=== PATIENT | male | born 1960 | race Caucasian/White ===

== ENCOUNTER 2019-03-16 01:19 | Day surgery (SDC) | payer BC, SELFPAY ==
[2019-03-06 14:55] VITALS: BMI 34.0
--- NOTE | ~2019-03-16 | CT_ITS ---
EXAMINATION: CT abdomen pelvis wo con EXAM DATE: 03/16/2019 11:42 INDICATION: Renal protocol. TECHNIQUE: Spiral CT of the abdomen and pelvis was performed without contrast. Axial, coronal and sag ittal images were reviewed. The dose-length product (DLP) for this examination was 361.31 mGy-cm. T he exposure was tailored according to patient size (auto mA exposure control), and iterative reconstr uction (ASIR) was used as additional dose reduction technique. Comparison is made to prior examinatio n from 05/24/2018. Correlation was made with KUB same date. FINDINGS: There is a 5 mm stone in the mid aspect of the left ureter. Mild bilateral perinephric fat stranding. No hydronephrosis at present. On the KUB exam obtained today, this projects over the left sacroiliac joint but is difficult to specifically identify. There is 3 mm stone in left inferior prabhakar x. The prostate is unremarkable. The bladder is unremarkable. The liver, spleen, adrenal glands an d pancreas are unremarkable. Gallbladder is unremarkable. No biliary obstruction. There is no retr operitoneal or pelvic lymphadenopathy. There is mild scattered arteriosclerotic disease. The appendix is normal. The stomach and small bowel are unremarkable. There is expected amount of c olonic stool. There is moderate sigmoid predominant colonic diverticulosis. There is no adjacent inf lammatory change to suggest diverticulitis. No free intraperitoneal gas. The heart is normal in siz e. There are no pericardial or pleural effusions. The lung bases are unremarkable. Moderate bilate ral hip osteoarthritis. IMPRESSION: 1. Left mid ureteral 5 mm stone. Mild bilateral perinephric fat stranding. No hydronephrosis at pres ent. 2. Smaller left inferior calyceal stone. 3. Colonic diverticulosis. Reviewed, dictated and finalized at location B. SEARCH ANALYST IMPRESSION: 1. Left mid ureteral 5 mm stone. Mild bilateral perinephric fat stranding. No hydronephrosis at present. 2. Smaller left inferior calyceal stone. 3. Colonic diverticulosis.
--- NOTE | ~2019-03-16 | XR_ITS ---
EXAMINATION: XR abdomen/kub 1V DATE: 03/16/2019 10:51 INDICATION: Kidney stone. TECHNIQUE: A supine view of the abdomen on 2 radiographs was obtained. COMPARISON: Abdomen radiographs 01/23/2019, CT abdomen and pelvis 05/24/2018 FINDINGS: There are no dilated loops of bowel. There is a 2 mm calcification overlying left kidney. T here are phleboliths in the pelvis. IMPRESSION: 1. 2 mm calcification overlying left kidney that may be a stone. Reviewed, dictated and finalized at location A. LEGAL ASSISTANT
[2019-03-16] MEDS: LACTATED RINGERS 1,000 ML 30 ML IV CONT (11:15)
[2019-03-16 11:23] LABS: Glucose Point of Care 118 (65-105)
[2019-03-16 11:37] VITALS: BP 149/93; PULSE 77; RESP 16; TEMP 36.8; O2SAT 97
--- NOTE | 2019-03-16 11:37 | SUR.PREOP ---
To CT per w/c.
--- NOTE | 2019-03-16 12:56 | WPDHPUPDATE1 ---
History and Physical Update Update Date/Time: 03/16/19 12:56 History and Physical has been reviewed, including an updated exam of the patient. There are NO changes in the patient's condition. Risks, benefits, and alternatives have been discussed and questions answered. Patient agrees to proceed with procedure. Stone is poorly visualized on KUB. Will plan cystoscopy, left retrograde pylography for improved localization.
--- NOTE | 2019-03-16 13:00 | WPDANESEPPF ---
Anes - Initial Pre Proc Eval Procedure: Operation Date: 03/16/19 12:30 Proposed Procedures p Left Ureteral Extracorporeal Shock Wave Lithotripsy - Herman Mckenna MD Date/Time: 03/16/19 13:00 Surgeon: Herman Mckenna MD Pre Op Diagnosis: Left Side kidney stone Patient Data Age: 58 Gender: M Height: 5 ft 9 in Weight: 103.7 kg Last Vital Signs Temp 98.2 F 03/16/19 11:37 Pulse 77 03/16/19 11:37 Resp 16 03/16/19 11:37 BP 149/93 H 03/16/19 11:37 Pulse Ox 97 03/16/19 11:37 Allergies Allergy/AdvReac Type Severity Reaction Status Date / Time No Known Allergies Allergy Unknown Other Verified 03/16/19 11:17 Home Medications Medication Instructions Recorded Confirmed Type colchicine 0.6 mg PO BID PRN 03/06/19 03/16/19 History glipizide 10 mg PO DAILY 03/06/19 03/16/19 History multivitamin 1 tablet PO DAILY 03/06/19 03/16/19 History naproxen sodium [Aleve] 220 mg PO Q12H PRN 03/06/19 03/16/19 History Laboratory Tests 03/16/19 11:18 POC Capillary Glucose 118 mg/dl H mg/dl (65-105) Patient hx anesthesia problems: none Family hx anesthesia problems: none PMFSH Past Medical History Medical History (Updated 03/16/19 @ 12:57 by Benedicto Graham MD) Arthritis Diabetes Peripheral neuropathy Social History Social History Smoking status: Former smoker Smoking end date: 02/14/17 Alcohol intake: current Anes - Eval Final PreProcedure Day of Procedure 03/16/19 13:00 Patient weight: obese Heart: regular rate and rhythm Lungs: clear to auscultation Airway: Mallampati scale class II Neurological: alert and oriented Last oral intake: >/= 8 hours ASA classification: III Emergent: no Anesthetic plan: proceed Anesthesia type and monitoring: general LMA and standard monitoring Informed Consent: The patient's anesthetic plan and its attendant risks and benefits were discussed with the patient/family/POA. Questions were solicited and answers provided to the satisfaction of the patient/family/POA.
[2019-03-16] MEDS: ceFAZolin 2 GM/D5W 50 ML 2 GM/50 ML BAG IVPB (13:21)
[2019-03-16 14:03] VITALS: BP 156/86; PULSE 58; RESP 12; TEMP 36.7; O2SAT 99
--- NOTE | 2019-03-16 14:11 | PM.PROC ---
Procedure Note - Detailed Date of procedure: 03/16/19 Pre-op diagnosis: Left Side kidney stone Post-op diagnosis: same Procedure performed: Cystoscopy, left retrograde pyelogram, left ureteroscopy with stone extracton. Description of procedure: The patient was brought to the operative suite where he is prepped and draped in a routine sterile fashion while in the supine position after the uneventful induction of a general LMA anesthetic. We had initially planned ESWL but his stone was very difficult to see on KUB and fluoroscopy. I used a 16F flexible cystoscope to place a 0.035 glidewire and angiographic catheter to do a retrograde pyelogram but still had difficulty identifying the stone. The bladder mucosa was endoscopically normal without hyperemia or neoplasm. There was a single, orthotopic ureteral orifice bilaterally. The distal ureter was dilated with an 8F/10F ureteral dilator. Ureteroscopy was undertaken with a flexible ureteroscope and the stone was extracted with ease using a 1.9F Escape basket disposable stone basket. Due to the ease of this manipulation I opted not to place a ureteral stent. The patient's bladder was emptied and was taken to the recovery room having tolerated this procedure well. Anesthesia: GLMA Surgeon: Herman Mckenna MD Estimated blood loss (mL): 0 Drains: No Packing: No Pathology: yes Complications: No immediate complications Condition: stable Disposition: PACU
[2019-03-16 14:15] VITALS: BP 152/76; PULSE 55; RESP 14; O2SAT 100
[2019-03-16 14:30] VITALS: BP 149/88; PULSE 55; RESP 14; O2SAT 97
[2019-03-16 14:35] VITALS: BP 169/93; PULSE 55; RESP 16; O2SAT 97
[2019-03-16 15:20] VITALS: BP 156/82; PULSE 58; RESP 16; O2SAT 97
--- NOTE | 2019-03-25 19:38 | PM.HPGS ---
History of Present Illness History of Present Illness Consent: Risks, benefits, and alternatives have been discussed and questions answered. Patient agrees to proceed with procedure. Chief complaint: Left Side kidney stone Narrative: This H&P is done retrospectively for surgery performed on 03/16/2019. Mikhail Garcia is a 58 year old male with an intermittent obstructing, painful left mid-ureteral stone. He denies fever/chills or gross hematuria. Review of Systems Cardiovascular: Cardiovascular: Denies chest pain, Denies lightheadedness, Denies palpitations and Denies dyspnea Respiratory: Respiratory: Denies dyspnea Gastrointestinal: Gastrointestinal: Denies diarrhea, Denies nausea and Denies vomiting Genitourinary: Genitourinary: Denies hematuria and Denies dysuria Endocrine: Endocrine: Denies palpitations PMFSH Past Medical History Medical History Arthritis Diabetes Peripheral neuropathy Social History Social History Smoking status: Former smoker Smoking end date: 02/14/17 Alcohol intake: current Meds Home Medications and Allergies Home Medications Medication Instructions Recorded Confirmed Type colchicine 0.6 mg PO BID PRN 03/06/19 03/16/19 History glipizide 10 mg PO DAILY 03/06/19 03/16/19 History multivitamin 1 tablet PO DAILY 03/06/19 03/16/19 History naproxen sodium [Aleve] 220 mg PO Q12H PRN 03/06/19 03/16/19 History hydrocodone-acetaminophen 1 - 2 tablet PO Q6H PRN #20 tablet 03/16/19 Rx sulfamethoxazole-trimethoprim 1 tablet PO Q12H #6 tablet 03/16/19 Rx Allergies Allergy/AdvReac Type Severity Reaction Status Date / Time No Known Allergies Allergy Unknown Other Verified 03/16/19 11:17 Exam Const: General: healthy appearing, comfortable, no acute distress and well developed; No confusion Nutritional Appearance: well nourished Orientation/consciousness: patient oriented x3 and No confusion HENMT: Head: normocephalic and atraumatic Ears: external ears normal Face and sinus: normal facial exam Mouth: Yes lip normal Teeth and gingiva: dentition normal Eyes: General: appearance normal, both eyes and all related structures Alignment and Position: alignment normal Eyelids: eyelids normal Cornea: corneas normal Pupils: Equal, round and reactive pupils present EOM: EOMs intact bilaterally Neck: Neck: normal visual inspection, full ROM and no JVD Chest: Chest palpation & inspection: normal inspection of the chest Resp: Effort & Inspection: normal respiratory effort and no use of accessory muscles Auscultation: clear to auscultation bilaterally Cardio: Jugular venous distension: no JVD Rate: regular rate Rhythm: regular rhythm GI: Inspection: normal to inspection GI Palp: No abdominal tenderness, No Guarding due to palpation present (GI) and No Rebound tenderness present Auscultation: normal bowel sounds : General: Yes bladder normal to palpation and No CVA tenderness Back/Spine/Pelvis: Back: No CVA tenderness Skin: General skin exam: normal color and no rashes or lesions noted Neuro: General: patient oriented x3, no focal motor deficits and No confusion Cranial nerves: Yes Equal, round and reactive pupils present Speech: normal speech Extrem: General: normal to inspection, no cyanosis and no edema Psych: Mental Status: mental status grossly normal Assessment and Plan Assessment and plan (1) Left ureteral stone: Code(s): N20.1 - Calculus of ureter Status: Acute Assessment and Plan: Cysto., left retrograde pyelogram, left ESWL
== END 2019-03-16 15:28 | disposition home or self-care (01) ==
PROVIDERS: PCP Emergency Medicine; Visit Provider Urology
PROC: (CPT 50590; principal; 2019-03-16 12:30)
DX: N20.0 Calculus of kidney (principal); E11.40 Type 2 diabetes mellitus with diabetic neuropathy, unspecified; Z79.84 Long term (current) use of oral hypoglycemic drugs; Z87.891 Personal history of nicotine dependence; E66.9 Obesity, unspecified; Z68.33 Body mass index [BMI] 33.0-33.9, adult
CPT/HCPCS: 52352; 74018; 74176; 82365; 88300; A9270; C1769; C1887; J0131; J0690; J1100; J2250; J2405; J2704; J7030; J7120; Q9966

== ENCOUNTER 2022-06-04 10:48 | Observation (INO) | payer BC, SELFPAY ==
[2022-06-04] VITALS (9 sets, daily range): BP systolic 132–167; BP diastolic 76–93; PULSE 51–63; RESP 14–20; TEMP 36.2–37.2; O2SAT 97–100; BMI 32.1
--- NOTE | 2022-06-04 | ECHO_ITS ---
Patient Info Name: Mikhail Garcia Age: 62 years : 1960 Gender: Male Ht: 69 in Wt: 220 lbs BSA: 2.24 m2 HR: 63 bpm BP: 152 / 80 mmHg Heart Rhythm: Sinus Rhythm Technical Quality: Fair Exam Date: 06/04/2022 3:33 PM Exam Location: [facility] Pulmonary Patient Status: Outpatient Admit Date: 06/04/2022 Staff Ordering Physician: Deann Limon NP Food And Beverage Coordinator: Camila Garcia RDCS Attending Provider: Alex Luis MD Referring Physician: Ashly FINK; Exam Type: CA echo dop bubble study w con Study Info Indications - murmur, tia Complete two-dimentional, color flow and Doppler transthoracic echocardiogram is performed with agitated saline and with contrast to opacify the left ventricle and to improve the delineation of the left ventricle endocardial borders. Contrast/Agitated Saline Contrast/Ag. Saline: Definity Amount: 3.00 ml Administered By: Camila Garcia RDCS Existing IV Access: Yes IV Access Condition: patent with no signs of infiltration Contrast/Ag. Saline: Agitated Saline Amount: 20.00 ml Administered By: India Hunter [facility] Existing IV Access: Yes IV Access Condition: patent with no signs of infiltration Summary 1. Definity contrast administered improved wall motion interpretation. 2. Left ventricular chamber dimension is normal. 3. Left ventricular systolic function is normal, estimated at 60-65%. 4. There is mild concentric increased left ventricular wall thickness. 5. The left ventricular diastolic function is grade II diastolic dysfunction. 6. E/e' 10 is mildly elevated. 7. Left atrial chamber dimension is mildly enlarged. 8. There is trace tricuspid valve regurgitation. 9. No pulmonary hypertension, estimated pulmonary arterial systolic pressure is 18 mmHg. Left Ventricle E/e' 10 is mildly elevated. Definity contrast administered improved wall motion interpretation. Left ventricular chamber dimension is normal. Left ventricular systolic function is normal, estimated at 60-65%. There is mild concentric increased left ventricular wall thickness. The left ventricular diastolic function is grade II diastolic dysfunction. Right Ventricle Right ventricular systolic function is normal and with normal TAPSE 3.2 cm. Right ventricular chamber dimension is normal. Left Atria Left atrial chamber dimension is mildly enlarged. Atrial Septum Agitated saline injection with and without valsalva maneuver opacified right side cardiac chambers without shunt to left side cardiac chambers. Intact interatrial septum visualized by 2D and agitated saline imaging. Aortic Valve The aortic valve is trileaflet. There is no aortic valve stenosis. There is no aortic valve regurgitation. Pulmonic Valve There is no pulmonic regurgitation. Mitral Valve There is no mitral valve stenosis. There is no mitral valve regurgitation. Tricuspid Valve There is trace tricuspid valve regurgitation. No pulmonary hypertension, estimated pulmonary arterial systolic pressure is 18 mmHg. Pericardium/Pleural There is no pericardial effusion. Inferior Vena Cava Normal inferior vena cava with >50% collapse upon inspiration consistent with normal right atrial pressure, 5 mmHg. Aorta The aortic root size at the sinus of Valsalva is normal. Left Ventricular Outflow Tract
--- NOTE | ~2022-06-04 | CT_ITS ---
EXAMINATION: CT brain wo con DATE: 06/04/2022 13:00 INDICATION: Dizziness, blurred vision, resolved TECHNIQUE: Computed tomography (CT) of the head was performed without intravenous contrast. The mA wa s adjusted according to patient size. Iterative reconstruction technique was employed. Exam dose: 60 5.33 mGy-cm total exam DLP. COMPARISON: 05/09/2015 CT brain FINDINGS: Bilateral carotid siphon internal carotid artery calcifications. There is nonspecific dimin ished attenuation of the cerebral white matter, likely due to chronic small vessel ischemic changes. No intracranial mass lesion or hemorrhage or cerebrovascular accident is evident. No midline shift or mass effect. Normal ventricular size. No subdural or epidural hematoma. The orbital contents are unremarkable. No fracture or bone destruction of the cranial vault. The mastoid air cells and included paranasal si nuses are unremarkable. IMPRESSION: Cerebral atherosclerosis and chronic small vessel ischemic changes of the cerebral white matter No acute intracranial abnormality Reviewed, dictated and finalized at Location A. Reviewed, dictated and finalized at location B.
--- NOTE | ~2022-06-04 | CT_ITS ---
CT ANGIOGRAM NECK History: Dizziness. Technique: Serial spiral axial images through the neck were obtained during arterial phase IV injecti on of 100 cc of Omnipaque 350. 3-D postprocessing and MIP images were then reconstructed on the [employer] workstation. Dose reduction technique was used on this scan by utilizing automated exposure control and iterative reconstruction technique. The dose-length product (DLP) was 1056.87 mGy-cm. CTA neck findings: Bilateral vertebral arteries are patent. Bilateral common carotid, internal carot id, and external carotid arteries are patent. There is mixed calcified and soft plaque at the proxima l right internal carotid artery, without stenosis. There are small calcified plaques at the proximal left internal carotid artery, without stenosis. The proximal right internal carotid artery demonstrat es 0% stenosis relative to the normal distal artery lumen diameter. The proximal left internal caroti d artery demonstrates 0% stenosis relative to the normal distal artery lumen diameter. Impression: No significant vascular abnormality seen. Reviewed, dictated and finalized at location . Impression: No significant vascular abnormality seen.
--- NOTE | ~2022-06-04 | MR_ITS ---
MRI of the brain Clinical History: Vertigo Technique: Axial and sagittal T1-weighted images were acquired. These were followed by axial T2-weigh ne, diffusion weighted, gradient, and FLAIR images. Findings: No significant signal abnormality seen in the brain parenchyma. There is no acute infarct, intracranial hemorrhage, or mass lesion. Ventricles and subarachnoid spaces are unremarkable. Orbits are unremarkable. Paranasal sinuses and m astoid air cells are clear. Major intracranial flow voids appear intact. Sagittal midline structures are intact. IMPRESSION: No significant abnormality seen. Reviewed, dictated and finalized at location M.
--- NOTE | 2022-06-04 11:02 | ECG_ITS ---
Measurements Intervals [place] Rate: 52 P: 35 CA: 180 QRS: 8 QRSD: 92 T: 19 QT: 372 QTc: 347 Interpretive Statements SINUS BRADYCARDIA POOR R-WAVE PROGRESSION ABNORMAL ECG COMPARED TO ECG 05/24/2018 21:08:43 HEART RATE IS DECREASED TO NO OTHER SIGNIFICANT CHANGE Electronically Signed On 06-04-2022 15:34:51 CDT by Alexis Mckenzie M.D.
[2022-06-04 11:23] LABS: Basophils Absolute Auto 0.1 K/mm3 (0.0-0.1); Basophils Percent Auto 1.7 % (0.2-1.2); Eosinophils Absolute Auto 0.2 K/mm3 (0-0.3); Eosinophils Percent Auto 3.2 % (0-4.4); Hematocrit 44.7 % (42.0-52.0); Hemoglobin 14.6 g/dL (14.0-18.0); Immature Granulocyte Absolute 0.03 K/mm3 (0.00-0.031); Immature Granulocyte Percent A 0.6 % (0-0.5); Lymphocytes Absolute Auto 1.75 K/mm3 (0.9-3.2); Lymphocytes Percent Auto 32.5 % (18.3-44.2); Mean Corpuscular HGB Conc 32.7 g/dl (32-36); Mean Corpuscular Hemoglobin 31.3 pg (26-34); Mean Corpuscular Volume 95.9 fl (80-100); Mean Platelet Volume 10.8 fl (7.4-10.4); Monocytes Absolute Auto 0.4 K/mm3 (0.1-0.6); Monocytes Percent Auto 7.1 % (2.6-8.5); Neutrophils Percent Auto 54.9 % (45.5-73.1); Platelet Count Result 227 k/mm3 (150-375); Red Blood Count 4.66 M/mm3 (4.6-6.20); Red Cell Distribution Width 13.2 % (11.5-14.5); White Blood Count 5.4 K/mm3 (4.5-10.0)
[2022-06-04 11:31] LABS: Alanine Aminotransferase 26 U/L (6-50); Albumin Level 4.6 g/dL (3.5-5.1); Alkaline Phosphatase 81 U/L (38-126); Anion Gap 8 mmol/L (8-16); Aspartate Amino Transferase 22 U/L (17-59); Bilirubin,Total 0.7 mg/dL (0.2-1.3); Blood Urea Nitrogen 18 mg/dL (9-20); Calcium 9.2 mg/dL (8.4-10.2); Carbon Dioxide 25 mmol/L (22-30); Chloride 102 mmol/L (98-107); Estimated CRCL calculation 108 ml/min; Estimated Glomerular Filt Rate > 60; Glucose 248 mg/dL (65-110); Potassium 4.2 mmol/L (3.4-5.0); Sodium 135 mmol/L (137-145)
--- NOTE | 2022-06-04 13:42 | ED.DIZZY ---
HPI - Dizziness General Chief Complaint: Dizziness Stated Complaint: lightheaded Time Seen by Provider: 06/04/22 12:45 History of Present Illness HPI Narrative: Patient woke up this morning, he was feeling a lot of vertigo, he tried to stand and was having a lot of unsteadiness with walking, the whole episode lasted about 2 hours and he is now feeling back to normal. No history of strokes in the past, no chest pain no difficulty breathing, no nausea or vomiting. He does state that he has had some difficulty hearing out of his left ear for 6 months. Related Data Home Medications Medication Instructions Recorded Confirmed colchicine 0.6 mg capsule 0.6 mg PO BID PRN Pain, Mild 03/06/19 03/16/19 glipizide 10 mg tablet, extended 10 mg PO DAILY 03/06/19 03/16/19 release 24 hr multivitamin 1 tablet PO DAILY 03/06/19 03/16/19 naproxen sodium 220 mg capsule 220 mg PO Q12H PRN Pain 03/06/19 03/16/19 (Aleve) Allergies Allergy/AdvReac Type Severity Reaction Status Date / Time No Known Allergies Allergy Unknown Other Verified 03/16/19 11:17 Review of Systems Review of Systems: CONST: No fever. HEENT: Difficulty hearing out of the left ear C/V: No chest pain RESP: No cough GI: No abdominal pain, nausea or vomiting : No dysuria. M/S: No joint pain. SKIN: No rash. NEURO: Episode of vertigo and unsteady gait that has resolved PSYCH: [No depression] [facility] Past Medical History Medical History (Updated 06/04/22 @ 14:02 by Mami Amaya MD) Arthritis Diabetes Peripheral neuropathy Social History Social History Smoking status: Former smoker Smoking end date: 02/14/17 Alcohol intake: current Exam Narrative: EXAMINATION OF ORGAN SYSTEMS/BODY AREAS: Constitutional: Vital signs per nursing GENERAL:[No acute distress, non-toxic appearing.] HEAD: Normal with no signs of head trauma. EYES: EOMI, conjunctiva normal ENT: Poor hearing left ear but normal appearing TMs LUNGS: Nonlabored breathing. HEART: [Regular rate and rhythm] ABD: [Soft], [nontender to palpation] EXT: Normal range of motion SKIN: [No rashes or lesions.] NEURO: [Alert and oriented x 3. CN2-12 intact, ambulating with normal steady gait, no gross focal sensory or strength deficits.] PSYCH: Normal affect Course Vital Signs Vital signs: Vital Signs Temperature 97.1 F L 06/04/22 10:57 Pulse Rate 55 L 06/04/22 10:57 Respiratory Rate 18 06/04/22 10:57 Blood Pressure 152/93 H 06/04/22 10:57 Pulse Oximetry 100 06/04/22 10:57 Oxygen Delivery Room Air 06/04/22 10:57 Temperature 97.1 F L 06/04/22 10:57 Pulse Rate 55 L 06/04/22 10:57 Respiratory Rate 18 06/04/22 10:57 Blood Pressure 152/93 H 06/04/22 10:57 Pulse Oximetry 100 06/04/22 10:57 Oxygen Delivery Room Air 06/04/22 10:57 MDM - Dizziness MDM Narrative Medical decision making narrative: 62-year-old male presenting here with episode of vertigo now resolved, vital signs stable, on exam he has normal neurologic exam including normal gait, NIH stroke scale of 0, however given his symptoms and concern for CVA/TIA, risk possibly BPPV or hearing related issue, though this seems less likely as he has already had hearing issues for 6 months, and his symptoms also have resolved. All labs are within acceptable limits, head CT here shows chronic changes without anything acute. EKG - 12-Lead: Performed at 1104. Interpreted by me. [Sinus rhythm]. Rate 52. [Normal] axis. NM-interval [normal]. QRS duration [normal]. QTc [normal]. [No ST segment elevation or depression]. [T-wave normal]. Impression: No EKG evidence of acute ischemia or dysrhythmia. Long discussion had with the patient and at bedside, he is agreeable to observation for MRI and further 6 CVA/TIA work-up. Discussed with the neurologist who agrees patient should be worked up for posterior CVA, with admission to the hospitalist. D/w hospitalist. As
--- NOTE | 2022-06-04 14:04 | PM.IMHP ---
H&P: HPI History of Present Illness Date/Time: 06/04/22 14:04 Chief Complaint: dizziness Narrative: This is a 62 year old male patient has history of hypertension and diabetes. This patient woke up this morning with having vertigo. The patient was unsteady when he was walking. He did not notice any focal weakness or any slurred words. The episode lasted about 2 hours and is now feeling back to normal. He has no prior history of TIAs or CVAs. He has no chest pain or shortness of breath. No fever chills. The patient has some difficulty hearing out of his left ear but this has been going on for 6 months. The patient has a dry scratchy voice but he stated this is common for him. Head CT was read as cerebral atherosclerosis and chronic small vessel ischemic changes of the cerebral white matter. No acute intracranial abnormality. The patient was given an aspirin. His blood sugar was 248. Troponin was negative. The patient is being admitted to observation status on the date of service is of 06/04/2022 Review of Systems Review of Systems: All systems reviewed & are unremarkable except as noted in HPI and below Constitutional: Constitutional: Reports as per HPI and Reports no additional constitutional complaints Eyes: Eyes: Reports as per HPI and Reports no additional eye complaints ENT: Reports system reviewed and no additional complaints, except as documented and Reports Normal hearing present Cardiovascular: Cardiovascular: Reports no additional cardiovascular complaints Respiratory: Respiratory: Reports no additional respiratory complaints and Reports no additional respiratory complaints Gastrointestinal: Gastrointestinal: Reports as per HPI and Reports no additional gastrointestinal complaints Musculoskeletal: Musculoskeletal: Reports no additional musculoskeletal complaints Integumentary/Breasts: Skin/Breast: Reports system reviewed and no additional complaints, except as docu and Reports as per HPI Neurologic: Reports system reviewed and no additional complaints, except as documented, Reports as per HPI and Reports Normal hearing present Psychiatric: Psychiatric: Reports no additional psychiatric complaints and Reports as per HPI Endocrine: Endocrine: Reports no additional endocrine complaints Hematologic/Lymphatic: Hematologic/Lymphatic: Reports no additional hematologic/lymphatic complaints Allergic/Immunologic: Allergic/Immunologic: Reports no additional allergic/immunologic complaints REPLACED BY [facility] Past Medical History Medical History (Updated 06/04/22 @ 16:15 by Deann Limon NP) Arthritis Diabetes Diverticulitis of colon with perforation Gout Kidney stones Peripheral neuropathy Surgical History Surgical History H/O arthroscopic knee surgery lay H/O cervical spine surgery H/O cystoscopy H/O thyroidectomy Family History Family History Grandparent Diabetes mellitus Mother Heart disease COPD (chronic obstructive pulmonary disease) Social History Social History (Updated 06/04/22 @ 16:06 by Deann Limon NP) Social History: He lives with his and he has 2 children. He helped to raise grandchildren. 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
[2022-06-04 14:11] LABS: Troponin I < 0.012 ng/mL (0.000-0.034)
[2022-06-04] MEDS: ASPIRIN 81 MG CHEWABLE TABLET 324 MG PO (14:20)
--- NOTE | 2022-06-04 15:47 | ADMGEN ---
This patient, Mikhail Garcia, was admitted to Medical Room 245-. Patient/family oriented to hospital policies and general routines including ID bracelet, bed and alarms, visiting hours, pain management, procedures, bathroom and other care routines, personal items, smoking policy, room service/diet, and visiting hours. Information on how to activate the Rapid Response Team has been discussed. Patient/Family are encouraged to report perceived risks to care and to ask questions if they do not understand what they are told or what they should do.
[2022-06-04] MEDS: PERFLUTREN LIPID MICROSPHERES 1.5 ML VIAL DILUTED TO 10 ML TOTAL VOLUME IV PUSH (16:17)
--- NOTE | 2022-06-04 16:18 | IVDEFINITY ---
Prior to administration of IV Definity the patient was educated on the risks and benefits of the imaging enhancing agent including potential adverse side effects. The patient verbalized understanding. Allergies were verified. No exclusion criteria were identified and at least one of the following inclusion criteria were met: 1) physician request, 2) patient technically difficult to image (per the [employer] guidelines of two or more segments not discernable within the apical view), or 3) questionable left ventricular function. ?
[2022-06-04 17:35] LABS: Glucose Point of Care 214 mg/dl (65-105)
[2022-06-04 18:51] LABS: Troponin I 0.023 ng/mL (0.000-0.034)
[2022-06-04 20:24] LABS: Glucose Point of Care 233 mg/dl (65-105)
[2022-06-05] VITALS: PULSE 62
[2022-06-05 03:41] VITALS: BP 132/68; PULSE 59; RESP 18; TEMP 36.1; O2SAT 96
[2022-06-05 04:00] VITALS: PULSE 53
[2022-06-05 06:09] LABS: Basophils Absolute Auto 0.1 K/mm3 (0.0-0.1); Basophils Percent Auto 1.5 % (0.2-1.2); Eosinophils Absolute Auto 0.2 K/mm3 (0-0.3); Eosinophils Percent Auto 4.4 % (0-4.4); Hematocrit 42.1 % (42.0-52.0); Hemoglobin 13.8 g/dL (14.0-18.0); Immature Granulocyte Absolute 0.03 K/mm3 (0.00-0.031); Immature Granulocyte Percent A 0.6 % (0-0.5); Lymphocytes Absolute Auto 1.49 K/mm3 (0.9-3.2); Lymphocytes Percent Auto 28.5 % (18.3-44.2); Mean Corpuscular HGB Conc 32.8 g/dl (32-36); Mean Corpuscular Hemoglobin 30.5 pg (26-34); Mean Corpuscular Volume 92.9 fl (80-100); Monocytes Absolute Auto 0.5 K/mm3 (0.1-0.6); Monocytes Percent Auto 9.9 % (2.6-8.5); Neutrophils Absolute Auto 2.9 K/mm3 (1.3-6.7); Neutrophils Percent Auto 55.1 % (45.5-73.1); Platelet Count Result 213 k/mm3 (150-375); Red Blood Count 4.53 M/mm3 (4.6-6.20); Red Cell Distribution Width 13.1 % (11.5-14.5); White Blood Count 5.2 K/mm3 (4.5-10.0)
[2022-06-05 06:16] LABS: Alanine Aminotransferase 23 U/L (6-50); Albumin Level 4.1 g/dL (3.5-5.1); Alkaline Phosphatase 75 U/L (38-126); Anion Gap 6 mmol/L (8-16); Aspartate Amino Transferase 21 U/L (17-59); Bilirubin,Total 0.6 mg/dL (0.2-1.3); Blood Urea Nitrogen 15 mg/dL (9-20); Carbon Dioxide 25 mmol/L (22-30); Chloride 104 mmol/L (98-107); Estimated CRCL calculation 108 ml/min; Estimated Glomerular Filt Rate > 60; Glucose 291 mg/dL (65-110); Magnesium 1.9 mg/dL (1.6-2.3); Potassium 4.2 mmol/L (3.4-5.0); Sodium 135 mmol/L (137-145)
[2022-06-05 06:49] LABS: Hemoglobin A1C 10.2 % (<5.7)
[2022-06-05 07:32] LABS: Thyroid Stimulating Hormone Reflex 0.864 uIU/mL (0.465-4.68)
[2022-06-05 08:00] VITALS: PULSE 66
[2022-06-05 08:00] LABS: Glucose Point of Care 317 mg/dl (65-105)
[2022-06-05] MEDS: INSULIN ASPART (*BKC) 100 UNITS/ML SUB-Q (08:06)
[2022-06-05] MEDS: glipiZIDE XL 5 MG TABCR 10 MG PO (08:06)
[2022-06-05] MEDS: MULTIVITAMINS THERAPEUTIC TAB (*BKC) 1 TABLET PO (08:06)
[2022-06-05] MEDS: EMPAGLIFLOZIN 25 MG TABLET PO (08:06)
--- NOTE | 2022-06-05 09:00 | PM.DS ---
DS: Admitting Diagnosis Discharge Date 06/05/22 0900 Admitting Diagnosis BPPV, vertigo DS: Discharge Diagnosis Discharge Diagnosis (1) Vertigo: Code(s): R42 - Dizziness and giddiness Status: Acute Assessment and Plan: Presented with complaints of weakness Neurology has been consulted Echo bubble EF of 60-65% with grade 2 diastolic dysfunction and no notable shunting CTA carotid no vascular abnormalities noted MRI of the brain no new or old infarcts noted Complaints of difficulty hearing out of the left ear Continue with daily aspirin. Orthostatic blood pressure laying 145/76, sitting 167/79, standing 155/88 (2) Elevated blood pressure reading: Code(s): R03.0 - Elevated blood-pressure reading, without diagnosis of hypertension Status: Acute Assessment and Plan: BP 132/68 Stable start 5mg lisinopril trend BP adjust therapy as indicated (3) Diabetes: Code(s): E11.9 - Type 2 diabetes mellitus without complications Status: Acute Assessment and Plan: Current glucose 291 Accu-Cheks AC and HS with sliding scale insulin and hypoglycemic protocol Continue glipizide, add Jardiance stable A1c 10.2 DS: Summary Hospital Course Hospital Course: Patient is a 62-year-old male with a past medical history of diabetes and hypertension who presented to the ED with complaints of dizziness. Patient stated that the dizziness lasted about 2 hours however has completely resolved. Upon arrival it was noted that the patient does have a little bit of left hearing issues. CTA was performed and showed no vascular disease or any acute findings. MRI was also performed and showed no acute abnormalities. Echo was also performed and showed an EF of 60 65% with grade 2 diastolic dysfunction with no shunting from [id number]. Head CT did not show any abnormalities as well. TIA CVA stroke workup was not remarkable. Patient does have some right sided ear wax buildup. Box is been ordered. Orthostatic blood pressures have been stable and do not show any hypotension. Spoke with the patient about his blood sugar and he stated that he has been eating a lot more carbs and sweets than normal. He does take the glipizide added Jardiance for further control. Currently patient is stable and is requesting discharge. Labs and vital signs are stable at this time. Patient currently denies any chest pain, shortness a breath, nausea, vomiting, diarrhea constipation. Spoke with patient more about the carb intake as well. Spoke with patient and about echo findings and other findings. Everyone agrees. Talked to the who would prefer to just increase the glipizide at this time. Jardiance is relatively expensive monthly for him and his would like to hold off on trying metformin right now and consider the later time. Status at Discharge Functional status at discharge: independent ambulation Overall status at discharge: patient is progressing back to baseline Time Spent with Patient Time attestation: Total time spent providing and/or coordinating discharge services: 48 minutes Time spent: Greater than 30 minutes Specific discharge activities: Diagnostic testing, chart review, developing a treatment plan, education, care coordination documentation, physical exam, result review Exam Narrative: General: well-nourished, well-appearing 62-year-old male, sitting up in bed, comfortable, NARD Neuro: awake, alert and oriented x4, speech clear, no focal neuro deficits noted HEENMT: normocephalic, atraumatic, EOMI, sclerae anicteric, moist oral mucosa, right ear with wax build up noted Respiratory: Clear to auscultation bilaterally without crackles, rhonchi or wheezes, nonlabored breathing Cardio: regular rate, regular rhythm with S1-S2 Abdomen: nondistended, normoactive bowel sounds, soft, nontender to palpation Extremities: no edema, erythema, or tend
[2022-06-05] MEDS: CARBAMIDE PEROXIDE 6.5% OT SOLN 15 ML BTL 5 DROP RIGHT EAR (10:26)
== END 2022-06-05 11:15 | disposition home or self-care (01) ==
LOC: ANHED 14:02 → ANH2MED 14:45
PROVIDERS: Nurse Practitioner; Admitting Provider Internal Medicine; Emergency Provider Emergency Medicine; PCP Emergency Medicine; Visit Provider Chiropractor
DX: R42 Dizziness and giddiness (principal); R03.0 Elevated blood-pressure reading, without diagnosis of hypertension; E11.40 Type 2 diabetes mellitus with diabetic neuropathy, unspecified; E11.65 Type 2 diabetes mellitus with hyperglycemia; M19.90 Unspecified osteoarthritis, unspecified site; R26.81 Unsteadiness on feet; R00.1 Bradycardia, unspecified; R90.82 White matter disease, unspecified; R94.31 Abnormal electrocardiogram [ECG] [EKG]; K57.92 Diverticulitis of intestine, part unspecified, without perforation or abscess without bleeding; I67.2 Cerebral atherosclerosis; H91.92 Unspecified hearing loss, left ear; M10.9 Gout, unspecified; Z87.891 Personal history of nicotine dependence; F10.90 Alcohol use, unspecified, uncomplicated; F12.90 Cannabis use, unspecified, uncomplicated; Z79.84 Long term (current) use of oral hypoglycemic drugs; Z79.1 Long term (current) use of non-steroidal anti-inflammatories (NSAID); Z79.899 Other long term (current) drug therapy; Z83.3 Family history of diabetes mellitus
CPT/HCPCS: 36415; 70450; 70498; 70551; 80053; 82948; 83036; 83735; 84443; 84484; 85025; 93005; 96375; 99285; A9270; C8929; G0378; J1815; Q9957; Q9967

== ENCOUNTER 2024-09-10 20:50 | Emergency (ER) | payer MEDICARE, SELFPAY ==
--- NOTE | ~2024-09-10 | XR_ITS ---
EXAMINATION: XR chest 2V DATE: 09/10/2024 21:18 INDICATION: Syncope TECHNIQUE: PA and lateral views of the chest were obtained. COMPARISON: None FINDINGS: The lungs are clear with no focal airspace opacities, pulmonary edema, pleural effusion or pneumothor ax. The cardiomediastinal silhouette is normal. Partially visualized anterior plate-screw fixation fo r lower cervical anterior spinal fusion. IMPRESSION: 1. No acute cardiopulmonary disease. Reviewed, dictated and finalized at location A.
[2024-09-10 20:52] VITALS: BP 150/93; PULSE 70; RESP 18; TEMP 36.3; O2SAT 99
--- OUTSIDE RECORDS SUMMARY | 2024-09-10 20:52 | XMS_ITS | Clinical Summary ---
Author Organization [facility] Address [address] [place] [address] Care Team Providers Care Electrical Parts Reconditioner Name Role Phone Lennox Estevez MD Primary Care Provider [phone] Medications glipiZIDE 10 MG tablet Take 10 mg by mouth every morning before breakfast. Active tamsulosin 0.4 MG Cap Take 1 capsule (0.4 mg total) by mouth daily. 30 capsule 01/13/2019 Active hydrocodone-sean taminophen 5-325 MG tabletIndicatio ns:Acute Pain < 3 Day Supply Take 1 tablet by mouth every 6 (six) hours as needed for Pain. 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 Gender Identity Not on file Sexual Orientation Not on file Last Filed Vital Signs Vital Sign Reading Time Taken Comments Blood Pressure 149/81 01/13/2019 7:09 PM MANAGER LOAN Pulse 74 01/13/2019 7:09 PM MANAGER LOAN Temperature 36.4 C (97.5 F) 01/13/2019 3:39 PM MANAGER LOAN Respiratory Rate 18 01/13/2019 7:09 PM MANAGER LOAN Oxygen Saturation 98% 01/13/2019 7:09 PM MANAGER LOAN Inhaled Oxygen Concentration - - Weight 97.5 kg (215 lb) 01/13/2019 3:39 PM MANAGER LOAN Height 175.3 cm (5' 9) 01/13/2019 3:39 PM MANAGER LOAN Body Mass Index 31.75 01/13/2019 3:39 PM MANAGER LOAN Plan of Treatment Health Maintenance Due Date Last Done Comments Colorectal Cancer Screening Colonoscopy (10 Years) 1959 Hepatitis C 1977 DTaP, Tdap and Td Vaccines ( 1 - Tdap) 1978 Pneumococcal Vaccine: 50+ Ye ars (1 of 1 - PCV) 2009 Zoster Vaccines (1 of 2) 2009 COVID-19 Vaccine (1 - 2023-2 5 season) 2023 RSV Immunization or 60+ Years (1 - 1-dose 75+ series) 2034 Meningococcal B Vaccine Aged Out No l onger eligible based on patient's age to complete this topic Meningococcal Vaccine Aged Out No simon nolvia eligible based on patient's age to complete this topic RSV Immunizations Under 20 Months Aged Out No longer eligible based on patient's age to complete this topic Insurance [place] [address] Care Teams Electrical Parts Reconditioner Relationship Specialty Start Date End Date Lennox Estevez MD [address] [place] [address] PCP - General FAMILY PRACTICE 01/13/19
--- OUTSIDE RECORDS SUMMARY | 2024-09-10 20:52 | XMS_ITS | Clinical Summary ---
Author Organization [facility] Address [address] [place] [address] Care Team Providers Care Golf Club Head Former Name Role Phone Lennox Estevez MD Primary Care Provider [phone] Allergies No known active allergies Medications Mitigare 0.6 mg capsuleIndicati ons:prevention of acute gout attack Take 0.6 mg by mouth 2 (two) times a day as needed 0 Active glipiZIDE XL (GLUCOTROL XL) 10 mg 24 hr tabletIndicatio ns:type 2 diabetes mellitus Take 10 mg by mouth every morning 0 Active Contour Next Test Strips strip 0 Active celecoxib (CeleBREX) 200 mg capsuleIndicati ons:Osteoarthri tis,Postoperati ve Acute Pain Take 1 tablet twice daily after surgery until prescription is finished. You should already have this prescription at home. 10 capsule 0 Active aspirin 325 mg enteric coated tabletIndicatio ns:Deep Vein Thrombosis Prevention Take 1 tablet (325 mg total) by mouth 2 (two) times a day 84 tablet 0 Active senna-docusate (PERICOLACE) 8.6-50 mgIndications:c onstipation Take 2 tablets by mouth 2 (two) times a day May increase to 4 tablets twice daily if needed. HOLD medication for diarrhea. 80 tablet 1 0 Active oxyCODONE-aceta minophen (PERCOCET) 5-325 mg per tabletIndicatio ns:Pain Take 1 tablet by mouth every 4 (four) hours as needed for pain 42 tablet 0 Active Active Problems Problem Noted Date Diagnosed Date HLD (hyperlipidemia) 09/04/2019 SAHRA (obstructive sleep apnea) 09/04/2019 Primary osteoarthritis of left knee 03/16/2019 Overview (03/16/2019): Added automatically from request for surgery [id number] Hyperparathyroidism 06/06/2015 Immunizations Immunization Administration Dates Next Due Hep B Vaccine 12/25/2004,07/10/2004,05/22/2004 Td, adsorbed 05/22/2004 Surgical History Surgery Date Site/Laterality Comments KNEE SURGERY 02/14/1999 - 02/14/2000 Bilateral arthroscopy CERVICAL FUSION 02/14/2017 - 02/13/2018 WISDOM TOOTH EXTRACTION PARATHYROIDECTOMY 02/14/2015 - 02/14/2016 LITHOTRIPSY x 2 Medical History Medical History Date Comments Diabetes mellitus (HCC) Gout Osteoarthritis Peripheral neuropathy H/O hyperparathyroidism Former tobacco use Marijuana use Family History Medical History Relation Name Comments Arthritis Father Arthritis Mother Anesthesia problems Neg Hx Relation Name Status Comments Father Mother Social History Tobacco Use Types Packs/Day Years Used Date Smoking Tobacco: Former Cigarettes 1 44 [id number] Cigars Smokeless Tobacco: Former Chew Quit: 1989 Comments:smoked cigaretts an d cigars Alcohol Use Standard Drinks/Week Comments Yes 14 (1 standard drink = 0.6 oz pu re alcohol) AUDIT-C Answer Date Recorded Q1: How often do you have a drink containing alc ohol? 2-3 times a week 04/20/2019 Q2: How many drinks containi ng alcohol do you have on a typical day when you are drinking? 1 or 2 04/20/2019 Q3: How often do you have si x or more drinks on one occasion? 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 Gender Identity Not on file Sexual Orientation Not on file Obstetrics History Last Filed Vital Signs Vital Sign Reading Time Taken Comments Blood Pressure 129/73 09/08/2019 8:11 AM CDT Pulse 58 09/08/2019 8:11 AM CDT Temperature 36.4 C (97.5 F) 09/08/2019 8:11 AM CDT Respiratory Rate 18 09/08/2019 8:11 AM CDT Oxygen Saturation 99% 09/08/2019 8:11 AM CDT Inhaled Oxygen Concentration - - Weight 101.2 kg (223 lb) 09/07/2019 5:24 AM CDT Height 175.3 cm (5' 9) 09/07/2019 5:24 AM CDT Body Mass Index 32.93 09/07/2019 5:24 AM CDT Plan of Treatment Not on file Medical Devices Implanted Type Area Matrix Plater Device Identifier Shelf Expiration Date Model / Serial / Lot [employer] [id number] Persona Cruciate Retaining Knee Left 11 Standard Component - Sna - [id number] Implanted:Qty: 1 on 09/07/2019 by Lonnie Lyon MD at [facility] Other - see comments Left: Knee [employer] [id number] 05/14/2029 [id number] / NA / [id number] [employer] [id number] Persona 2 Peg Knee Left H Baseplate Tibial Trabecular Metal - Sna - [id number] Implanted:Qty: 1 on 09/07/2019 by Lonnie Lyon MD at [facility] Other - see comments Left: Knee [employer] [id number] 05/14/2029 [id number] / NA / [id number] [employer] [id number] Persona 12mm Knee Left 8-11 G-H Insert Articular Vivacit-E - Sna - [id number] Implanted:Qty: 1 on 09/07/2019 by Lonnie Lyon MD at [facility] Other - see comments Left: Knee [employer] [id number] 03/16/2024 [id number] / NA / [id number] [place] For more information, please contact: [phone] * Full Code (Latest Code Status on File) Date Activated Date Inactivated Comments 09/07/2019 10:06 AM 09/08/2019 4:54 PM Care Teams Golf Club Head Former Relationship Specialty Start Date End Date Lennox Estevez MD [address] [place] [id number] PCP - General Family Practice 01/17/19
--- OUTSIDE RECORDS SUMMARY | 2024-09-10 20:53 | XMS_ITS | Referral Summary ---
Author Organization [facility] Address [address] [place] [address] Care Team Providers Care Wellness Program Manager Name Role Phone Lennox Estevez MD Primary Care Provider [phone] Allergies No known active allergies Medications Mitigare [...] (03/16/2019): Added automatically from request for surgery [id number] Hyperparathyroidism 06/06/2015 Immunizations Immunization Administration Dates Next Due Hep B Vaccine 12/25/2004,07/10/2004,05/22/2004 Td, adsorbed 05/22/2004 Social History Tobacco Use Types Packs/Day Years Used Date Smoking Tobacco: Former Cigarettes 1 44 1 972017 Cigars Smokeless Tobacco: Former Chew Quit: [...] on file 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 Gender Identity Not on file Sexual Orientation [...] on file Medical Devices Implanted Type Area Railroad Worker Device Identifier Shelf Expiration Date Model / Serial / Lot [id number] Persona Cruciate Retaining Knee Left 11 Standard Component - Sna - [id number] Implanted:Qty: 1 on 09/07/2019 by Lonnie Lyon MD at [facility] Other - see comments Left: Knee [employer] [id number] 05/14/2029 [id number] / NA / [id number] [employer] [id number] Persona 2 Peg Knee Left H Baseplate Tibial Trabecular Metal - Sna - [id number] Implanted:Qty: 1 on 09/07/2019 by Lonnie Lyon MD at [facility] Other - see comments Left: Knee [employer] [id number] 05/14/2029 [id number] / NA / [id number] [employer] [id number] Persona 12mm Knee Left 8-11 G-H Insert Articular Vivacit-E - [facility] - [id number] Implanted:Qty: 1 on 09/07/2019 by Lonnie Lyon MD at [facility] Other - see comments Left: Knee [employer] [id number] 03/16/2024 [id number] / NA / [id number] Insurance CHOICE [facility] [place] Advance Directives For more information, please contact: [phone] * Full Code (Latest Code Status on File) Date Activated Date Inactivated Comments 09/07/2019 10:06 AM 09/08/2019 4:54 PM Care Teams Wellness Program Manager Relationship Specialty Start Date End Date Lennox Estevez MD [address] [place] [address] PCP - General Family Practice 01/17/19
--- NOTE | 2024-09-10 21:03 | ECG_ITS ---
Test Date: 2024-09-10 21:01:27 Measurements Intervals Grulla Rate: 67 P: 24 OK: 180 QRS: -6 QRSD: 92 T: 8 QT: 361 QTc: 384 Interpretive Statements SINUS RHYTHM Electronically Signed On 09-11-2024 17:17:40 CDT by Leoncio Kennedy D.O
[2024-09-10 21:13] LABS: Hematocrit 44.6 % (42.0-52.0); Hemoglobin 14.6 g/dL (14.0-18.0); Immature Granulocyte Percent A 0.5 % (0-0.5); Lymphocytes Absolute Auto 2.05 K/mm3 (0.9-3.2); Mean Corpuscular HGB Conc 32.7 g/dl (32-36); Mean Corpuscular Hemoglobin 31.1 pg (26-34); Mean Corpuscular Volume 94.9 fl (80-100); Nucleated Red Blood Cells Absolute Auto 0.000 K/mm3 (0.0-0.012); Nucleated Red Blood Cells Perc 0.0 % (0.0-0.2); Platelet Count Result 241 k/mm3 (150-375); Red Blood Count 4.70 M/mm3 (4.6-6.20); White Blood Count 6.4 K/mm3 (4.5-10.0)
[2024-09-10 21:32] LABS: Alanine Aminotransferase 24 U/L (6-50); Albumin Level 5.2 g/dL (3.5-5.1); Alkaline Phosphatase 63 U/L (38-126); Anion Gap 15 mmol/L (4-12); Aspartate Amino Transferase 28 U/L (17-59); Bilirubin,Total 0.7 mg/dL (0.2-1.3); Blood Urea Nitrogen 18 mg/dL (9-20); Calcium 10.0 mg/dL (8.4-10.2); Carbon Dioxide 21 mmol/L (22-30); Chloride 100 mmol/L (98-107); Estimated CRCL calculation 59 ml/min; Estimated Glomerular Filt Rate 55; Glucose 270 mg/dL (65-110); Potassium 3.7 mmol/L (3.4-5.0); Sodium 136 mmol/L (137-145); Total Protein 8.9 g/dL (6.3-8.2)
[2024-09-10 22:19] VITALS: BP 152/85; PULSE 69; RESP 14; O2SAT 100
[2024-09-10 22:24] VITALS: PULSE 67
[2024-09-10] MEDS: SODIUM CHLORIDE 0.9% IV 1,000 ML 999 ML IV CONT (22:42)
[2024-09-10 23:09] LABS: Creatine Kinase 103 U/L (55-170)
[2024-09-10 23:22] LABS: Troponin I < 0.012 ng/mL (0.000-0.034)
--- NOTE | 2024-09-10 23:54 | ED_ITS ---
HPI - Syncope General Chief Complaint: Syncope Stated Complaint: syncope Time Seen by Provider: 09/10/24 22:32 Source: patient Mode of arrival: ambulatory Limitations: no limitations History of Present Illness HPI narrative: This is a 64 year old male that presents to the ER for a syncopal episode today. Reports he was playing bingo. Cope like he was going to pass out. Was lowered to the ground. He did not his hit head. He has passed out before. Reports he has been outside and has not drank enough water today. Denies chest pain, shortness of breath, palpitations. Related Data Home Medications ?Medication ?Instructions ?Recorded ?Confirmed ?Last Taken ?Type multivitamin 1 tablet PO DAILY 03/06/19 06/04/22 06/04/22 History colchicine 0.6 mg tablet 0.6 mg PO DAILY PRN gout 06/04/22 06/04/22 03/17/22 History Allergies Allergy/AdvReac Type Severity Reaction Status Date / Time No Known Allergies Allergy Unknown Other Verified 09/10/24 22:33 Review of Systems 2 Review of Systems: All systems reviewed & are unremarkable except as noted in HPI and below PMFSH Past Medical History Medical History (Updated 09/10/24 @ 23:56 by Thais Vo PA-C) Diverticulitis of colon with perforation Kidney stones Gout Peripheral neuropathy Diabetes Arthritis Surgical History Surgical History H/O cervical spine surgery H/O arthroscopic knee surgery lay H/O thyroidectomy H/O cystoscopy Family History Family History Grandparent Diabetes mellitus Mother Heart disease COPD (chronic obstructive pulmonary disease) Social History Social History (Updated 06/04/22 @ 16:06 by Deann Limon, WORD PROCESSING SPECIALIST) Social History: He lives with his and he has 2 children. He helped to raise grandchildren. 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 Smoking packs per day: 1 Smoking cigarettes per day: 20.0 Years smoked: 42 Smoking pack-years: 42.00 Smoking status: Former smoker Tobacco type: cigarettes and cigars Second hand tobacco smoke exposure: Yes Smoking end date: 02/14/17 Alcohol intake: current Drinks per week: 10 Substance use: current Substance use type: marijuana Lack of Transportation: No Lack of Food: Sometimes True Current Housing: I Have Housing Concerned About Future Housing: No Difficulty Paying Gas/Electric Bills: No Difficulty Paying for Meds: No Currently Unemployed: No Education: High School Diploma/GED Difficulty w/ Childcare or Family Care: No Spiritual care concerns: No Exam 2 Narrative: GENERAL: Well-appearing, well-nourished, and in no acute distress. HEAD: Normocephalic, atraumatic. EYES: PERRLA and EOMI. ENT: Nares clear, no rhinorrhea or epistaxis. Mucous membranes moist. Oropharynx without tonsillar hypertrophy exudate or other lesions. Bilateral TMs pearly goetz non-bulging NECK: Supple. No adenopathy or masses. CHEST: Clear to auscultation. No respiratory distress. No wheezes rales or rhonchi HEART: Regular rate and rhythm. No murmur heard. Normal peripheral pulses. ABDOMEN: Soft, nontender, nondistended, normal active bowel sounds. EXTREMITIES: Normal range of motion. No edema. SKIN: Warm, dry, no rash. NEURO: No focal deficits. Alert and oriented x3. CN II-XII grossly intact PSYCH: Normal mood and affect Course Course Emergency Course: Patient updated on his workup. Reports he feels much better after IV fluids. Ready for discharge Vital Signs Vital signs: Vital Signs Temperature 97.3 F L 09/10/24 20:52 Pulse Rate 70 09/10/24 20:52 Respiratory Rate 18 09/10/24 20:52 Blood Pressure 150/93 H 09/10/24 20:52 Pulse Oximetry 99 09/10/24 20:52 Oxygen Delivery Room Air 09/10/24 20:52 Temperature 97.3 F L 09/10/24 20:52 Pulse Rate 67 09/10/24 22:24 Respiratory Rate 14 09/10/24 22:19 Blood Pressure 152/85 H 09/10/24 22:19 Pulse Oximetry 100 09/10/24 22:19 Oxygen Delivery Room Air 09/10/24 20:52 MDM - Syncope MDM Narrative Medical decision making narrative: Patient presents the emergency department after syncopal episode today reports previous history of syncopal episodes. Reports feeling lightheaded prior to. He did not have any chest pain, shortness of breath, palpitations. He did not hit his head or sustain any injuries. His vitals are stable. Cbc without concerning findings. Metabolic panel with some evidence of dehydration. Patient hydrated with L of IV fluids in the ED. CK is not elevated. EKG shows normal sinus rhythm. Baseline troponin is not elevated. Cottle syncope risk score makes him very low risk. Patient Was updated on his workup. Reports feeling much better after IV fluids. Ready for discharge. He was given warnings to return to the ER Differential Diagnosis Differential diagnosis: Likely syncope due to orthostatic hypotension, vasovagal syncope and dehydration Lab Data Attestation: I reviewed the patient's lab results. 09/10/24 21:05 09/10/24 21:05 Labs: Lab Results 09/10/24 Range/Units 21:05 WBC 6.4 (4.5-10.0) K/mm3 RBC 4.70 (4.6-6.20) M/mm3 Hgb 14.6 (14.0-18.0) g/dL Hct 44.6 (42.0-52.0) % MCV 94.9 (80-100) fl MCH 31.1 (26-34) pg MCHC 32.7 (32-36) g/dl RDW 13.1 (11.5-14.5) % Plt Count 241 (150-375) k/mm3 MPV 10.7 H (7.4-10.4) fl Immature Gran % (Auto) 0.5 (0-0.5) % Neut % (Auto) 55.5 (45.5-73.1) % Lymph % (Auto) 31.8 (18.3-44.2) % Evans % (Auto) 8.9 H (2.6-8.5) % Eos % (Auto) 1.9 (0-4.4) % Baso % (Auto) 1.4 H (0.2-1.2) % Lymph # (Auto) 2.05 (0.9-3.2) K/mm3 Evans # (Auto) 0.6 (0.1-0.6) K/mm3 Eos # (Auto) 0.1 (0-0.3) K/mm3 Baso # (Auto) 0.1 (0.0-0.1) K/mm3 Abs Immat Gran (auto) 0.03 (0.00-0.031) K/mm3 Absolute Neuts (auto) 3.6 (1.3-6.7) K/mm3 Absolute Nucleated RBC 0.000 (0.0-0.012) K/mm3 Nucleated RBC % 0.0 (0.0-0.2) % Sodium 136 L (137-145) mmol/L Potassium 3.7 (3.4-5.0) mmol/L Chloride 100 (98-107) mmol/L Carbon Dioxide 21 L (22-30) mmol/L Anion Gap 15 H (4-12) mmol/L BUN 18 (9-20) mg/dL Creatinine 1.31 H (0.7-1.3) mg/dL Estim Creat Clear Calc 59 ml/min Estimated GFR 55 L (59 - ) Glucose 270 H (65-110) mg/dL Calcium 10.0 (8.4-10.2) mg/dL Total Bilirubin 0.7 (0.2-1.3) mg/dL AST 28 (17-59) U/L ALT 24 (6-50) U/L Alkaline Phosphatase 63 (38-126) U/L Total Creatine Kinase 103 (55-170) U/L Troponin I < 0.012 (0.000-0.034) ng/mL Total Protein 8.9 H (6.3-8.2) g/dL Albumin 5.2 H (3.5-5.1) g/dL Ethyl Alcohol 10 (<10) mg/dL Imaging Data Radiologist's impression: ITS Impressions Chest X-Ray 09/10/24 21:34 IMPRESSION: 1. No acute cardiopulmonary disease. ECG Data EKG #1: ECG completion date: 09/10/24 EKG Interpretation: normal rate, sinus rhythm, no ST changes and normal QT Critical Care Time Critical Care Time Critical Care Time: No Discharge Plan Discharge Clinical Impression: Dehydration Syncope Qualifiers: Syncope type: unspecified Qualified Code(s): R55 - Syncope and collapse Patient Disposition: Home Condition: Improved Instructions: Dehydration (ED), Syncope (ED) Additional Instructions: Return to the emergency department if you experience fever, chest pain, shortness of breath, abdominal pain with nausea and vomiting, weakness, numbness, you pass out, or any other symptoms that are concerning to you. Your blood work did show some dehydration, otherwise the rest of your workup was re-assuring Rest. Remain well hydrated. Follow up with your primary care doctor Patient Language: Setswana Prescriptions: No Action multivitamin Tablet 1 tablet PO DAILY colchicine 0.6 mg Tablet 0.6 mg PO DAILY PRN (Reason: gout) meclizine 25 mg tablet 25 mg PO TID PRN (Reason: dizziness) Qty: 30 0RF glipizide 10 mg tablet extended release 24hr 12.5 mg PO DAILY Qty: 30 0RF glipizide 2.5 mg tablet extended release 24hr 2.5 mg PO DAILY Qty: 30 0RF Follow-up/Referrals: Zenaida,Lennox Man MD [Primary Care Provider] -
--- OUTSIDE RECORDS SUMMARY | 2024-09-10 23:56 | XMS_ITS | Clinical Summary ---
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 PAINTER Pulse 74 01/13/2019 7:09 PM SOLE PAINTER Temperature 36.4 C (97.5 F) 01/13/2019 3:39 PM SOLE PAINTER Respiratory Rate 18 01/13/2019 7:09 PM SOLE PAINTER Oxygen Saturation 98% 01/13/2019 7:09 PM SOLE PAINTER Inhaled Oxygen Concentration - - Weight 97.5 kg (215 lb) 01/13/2019 3:39 PM SOLE PAINTER Height 175.3 cm (5' 9) 01/13/2019 3:39 PM SOLE PAINTER Body Mass Index 31.75 01/13/2019 3:39 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
--- OUTSIDE RECORDS SUMMARY | 2024-09-10 23:56 | XMS_ITS | Clinical Summary ---
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 Gender Identity Not on file Sexual Orientation [...] on file Medical Devices Implanted Type Area Technical Project Coordinator Device Identifier Shelf Expiration Date Model / Serial / Lot [employer] [id number] Persona Cruciate Retaining Knee Left 11 Standard Component - Sna - [id number] Implanted:Qty: 1 on 09/07/2019 by Lonnie Lyon MD at [facility] Other - see comments Left: Knee [employer] [id number] 05/14/2029 [id number] / NA / [id number] [employer] [id number] Persona 2 Peg Knee Left H Baseplate Tibial Trabecular Metal - Sna - [id number] Implanted:Qty: 1 on 09/07/2019 by Lonnie Lyon MD at [facility] Other - see comments Left: Knee [employer] [id number] 05/14/2029 [id number] / NA / [id number] [employer] [id number] Persona 12mm Knee Left 8-11 G-H Insert Articular Vivacit-E - Sna - [id number] Implanted:Qty: 1 on 09/07/2019 by Lonnie Lyon MD at [facility] Other - see comments Left: Knee [employer] [id number] 03/16/2024 [id number] / NA / [id number] [place] For more information, please contact: [phone] * Full Code (Latest Code Status on File) Date Activated Date Inactivated Comments 09/07/2019 10:06 AM 09/08/2019 4:54 PM Care Teams Broker Relationship Specialty Start Date End Date Lennox Estevez MD [address] [place] [id number] PCP - General Family Practice 01/17/19
--- OUTSIDE RECORDS SUMMARY | 2024-09-10 23:56 | XMS_ITS | Referral Summary ---
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 Gender Identity Not on file Sexual [...] on file Medical Devices Implanted Type Area Solar Installation Helper Device Identifier Shelf Expiration Date Model / Serial / Lot [employer] [id number] Persona Cruciate Retaining Knee Left 11 Standard Component - Sna - [id number] Implanted:Qty: 1 on 09/07/2019 by Lonnie Lyon MD at [facility] Other - see comments Left: Knee [employer] [id number] 05/14/2029 [id number] / NA / [id number] [employer] [id number] Persona 2 Peg Knee Left H Baseplate Tibial Trabecular Metal - Sna - [id number] Implanted:Qty: 1 on 09/07/2019 by Lonnie Lyon MD at [facility] Other - see comments Left: Knee [employer] [id number] 05/14/2029 [id number] / NA / [id number] [employer] [id number] Persona 12mm Knee Left 8-11 G-H Insert Articular Vivacit-E - [facility] - [id number] Implanted:Qty: 1 on 09/07/2019 by Lonnie Lyon MD at [facility] Other - see comments Left: Knee [employer] [id number] 03/16/2024 [id number] / NA / [id number] Insurance [facility] [place] Advance Directives For more information, please contact: [phone] * Full Code (Latest Code Status on File) Date Activated Date Inactivated Comments 09/07/2019 10:06 AM 09/08/2019 4:54 PM Care Teams Smasher Relationship Specialty Start Date End Date Lennox Estevez MD [address] [place] [address] PCP - General Family Practice 01/17/19
[2024-09-11 00:01] VITALS: PULSE 70; RESP 19
[2024-09-11 00:04] VITALS: BP 140/78; PULSE 64; RESP 18; TEMP 37; O2SAT 98
== END 2024-09-11 00:05 | disposition home or self-care (01) ==
PROVIDERS: Emergency Medicine; Emergency Provider Physician Assistant; PCP Emergency Medicine
DX: R55 Syncope and collapse (principal); E86.0 Dehydration; Z87.442 Personal history of urinary calculi; E11.42 Type 2 diabetes mellitus with diabetic polyneuropathy; M19.90 Unspecified osteoarthritis, unspecified site
CPT/HCPCS: 36415; 71046; 80053; 82077; 82550; 84484; 85025; 93005; 96360; 99284; J7030